=== PATIENT | male | born 1990 | race Caucasian/White ===

== ENCOUNTER → 2020-10-11 | Outpatient (CLI) | payer OTHER ==
--- NOTE | 2020-11-01 14:44 | SLEEP ---
[address] [address] SLEEP STUDY REPORT Name: BRYAN DONAHUE Room: [facility]#: [id number] Admission: 10/11/20 Attend Phys: Lalito Lockwood MD Discharge: Date of : 89 Report #: [id number] THIS REPORT FOR: cc: FAM - No family physician/PCP FAM - No family physician/PCP Paco Johnson MD ~ This study has been reviewed in its entirety by a board certified sleep specialist DATE OF SERVICE: 10/11/2020 SLEEP STUDY INDICATION FOR SLEEP STUDY: History of obstructive sleep apnea and snoring. INTERPRETATION: Total duration of the study is 391 minutes out of which the patient was asleep for 341 minutes with an overall sleep efficiency of 87% and sleep onset initially occurred 12 minutes after lying down in bed and REM onset was 68 minutes after sleep onset. N1 sleep duration is 7.5%, N2 duration is 58%, N3 duration is 20%, and REM duration is 15%. We did record occasional sleep related respiratory events. These included 3 apneas, which were central and 45 respiratory effort related arousals. Overall, apnea-hypopnea index is normal at 0.5 with respiratory disturbance index mildly elevated to 8.5. Body position data indicates the patient was asleep in the supine position for 251 minutes. The rest of the time, the patient was in the left side. Mean heart rate was 50. Periodic limb movement index is normal at 3.2. Arousal index is mildly elevated to 34. O2 saturation is adequately maintained throughout the sleep study. IMPRESSION: Occasional sleep related respiratory events recorded as mentioned above. Sleep apnea; however, was not detected during the sleep study and the patient's apnea-hypopnea index is normal at 0.5. O2 saturation is also adequately maintained throughout the sleep study. RECOMMENDATIONS: 1. Recommend a clinical correlation and evaluation for his sleep complaints. 2. Recommend avoiding driving or other activities [place] [address] SLEEP STUDY REPORT Name: BRYAN DONAHUE Room: [facility]#: [id number] Admission: 10/11/20 Attend Phys: Lalito Lockwood MD Discharge: Date of : 89 Report #: [id number] This entire sleep study was reviewed by board certified sleep physician. <ELECTRONICALLY SIGNED> By: Paco Johnson MD 11/01/20 [id number] Johnson MD /nt
== END ==
LOC: M.SLEEPLAB 09-30 20:00
PROVIDERS: ATTEND Orthopaedic Surgery
DX: G47.30 Sleep apnea, unspecified (principal)